=== PATIENT | female | born 1985 | race Two or more races ===

== ENCOUNTER 2016-07-19 20:46 | Inpatient (IN) | payer OTHER ==
[2016-07-19] VITALS (18 sets, daily range): BP systolic 99–136; BP diastolic 56–85
[~2016-07-19] VITALS: Ht 152.4 cm; Wt 74.0 kg
[2016-07-19] MEDS ORDERED: IRON65TA PO (21:05)
[2016-07-19] MEDS ORDERED: ASCO25TA PO (21:05)
[2016-07-19] MEDS ORDERED: PRENTAB9 PO (21:05)
[2016-07-19 21:41] LABS: MEAN CORPUSCULAR HEMOGLOBIN 27.3 pg (27.0-33.0); MEAN CORPUSCULAR HGB CONC 33.1 g/dl (32.0-36.5); MEAN CORPUSCULAR VOLUME 82.3 fl (80.0-96.0); RED CELL DISTRIBUTION WIDTH 15.9 % (11.5-14.5); WHITE BLOOD COUNT 17.3 K/mm3 (4.0-10.0)
[2016-07-19] MEDS ORDERED: FENTANYL 2MCG/ML ROPIVACAINE 0.2% NACL 250 ML CADD As Ordered ONE (21:44)
[2016-07-19] MEDS ORDERED: LR 1,000 ML IV SCH (21:55)
[2016-07-19] MEDS ORDERED: LACTATED RINGER'S 1000 ML IV STA (21:55)
[2016-07-19] MEDS ORDERED: EPIDURAL COMMENT XX SCH (22:10)
[2016-07-19] MEDS ORDERED: REFRIGERATOR IV KEYS XX PRN (22:10)
[2016-07-19] MEDS ORDERED: LACTATED RINGER'S 1000 ML IV PRN (22:10)
[2016-07-19] MEDS ORDERED: ONDANSETRON 4MG/2ML VIAL (J2405) IV PRN (22:10)
[2016-07-19] MEDS ORDERED: EPIDURAL/PCA KEYS XX PRN (22:10)
[2016-07-19] MEDS ORDERED: FENTANYL/ROPIVACAINE/NACL CADD 250 ML EPIDURAL SCH (22:10)
[2016-07-19] MEDS ORDERED: NALOXONE INJ 0.4 MG/1 ML VIAL (J2310) IV PRN (22:10)
[2016-07-19] MEDS ORDERED: diphenhydrAMINE INJ 50MG/ML VIAL (J1200) IV PRN (22:10)
[2016-07-20] VITALS (23 sets, daily range): BP systolic 96–128; BP diastolic 52–68
[2016-07-20] MEDS ORDERED: OXYTOCIN 30 UNITS IN 0.9% NaCl 500ML IV BAG (J2590) As Ordered ONE (00:26)
[2016-07-20] MEDS ORDERED: LR 1,000 ML IV SCH ×2 (02:53→04:45)
[2016-07-20] MEDS ORDERED: OXYTOCIN DRIP 30 UNITS in APPROPRIATE DILUENT 1 EA IV SCH (03:00)
[2016-07-20] MEDS ORDERED: BICITRA 30ML SOLN UDC As Ordered ONE (03:31)
[2016-07-20] MEDS ORDERED: OXYTOCIN INJ 10 UNITS/ML VIAL (J2590) As Ordered ONE ×2 (03:43→05:00)
[2016-07-20] MEDS ORDERED: LIDOCAINE 2% W/EPIN INJ 20ML **PRES FREE As Ordered ONE (03:43)
[2016-07-20] MEDS ORDERED: MORPHINE PRES-FREE INJ 10 MG/10 ML VIAL (J2274) As Ordered ONE (04:24)
[2016-07-20] MEDS ORDERED: MEPERIDINE 50 MG/ML 1ML VIAL (J2175) As Ordered ONE (04:24)
[2016-07-20] MEDS ORDERED: ONDANSETRON 4MG/2ML VIAL (J2405) IV PRN ×3 (04:30→05:15)
[2016-07-20] MEDS ORDERED: NALOXONE INJ 0.4 MG/1 ML VIAL (J2310) IV PRN ×2 (04:30)
[2016-07-20] MEDS ORDERED: METOCLOPRAMIDE INJ 10MG/2ML VIAL (J2765) IV PRN ×3 (04:30→05:15)
[2016-07-20] MEDS ORDERED: NALBUPHINE HCL 10 MG/ML AMP (J2300) IV PRN ×2 (04:30→04:45)
[2016-07-20] MEDS ORDERED: ONDANSETRON 4MG/2ML VIAL (J2405) As Ordered ONE (04:30)
[2016-07-20] MEDS ORDERED: KETOROLAC 60 MG/2 ML VIAL (J1885) As Ordered ONE (04:30)
[2016-07-20 04:37] LABS: CORD GAS ABE V -1.7; CORD GAS HCO3 V 23.2 MEQ/L; CORD GAS PCO2 V 40.2 mmHg; CORD GAS PH V 7.379 UNITS; CORD GAS PO2 V 26.2 mmHg; CORD GAS SBC V 22.1 MEQ/L; CORD GAS TCO2 V 24.4 MEQ/L
[2016-07-20 04:40] LABS: CORD GAS ABE A -2.1; CORD GAS HCO3 A 23.8 MEQ/L; CORD GAS O2 SAT A 45.9 %; CORD GAS PCO2 A 44.8 mmHg; CORD GAS PH A 7.344 UNITS; CORD GAS PO2 A 21.4 mmHg; CORD GAS SBC A 21.3 MEQ/L; CORD GAS TCO2 A 25.2 MEQ/L
[2016-07-20] MEDS ORDERED: fentaNYL 100 MCG/2 ML INJECTION (J3010) IV PRN (04:45)
[2016-07-20] MEDS ORDERED: MEPERIDINE INJ 25 MG/ML VIAL (J2175) IV PRN (04:45)
[2016-07-20] MEDS ORDERED: PERCOCET 5MG/325MG TAB PO PRN (04:45)
[2016-07-20] MEDS ORDERED: HYDROmorphone HCL 1 MG/ML SYRINGE (J1170) IV PRN (04:45)
[2016-07-20] MEDS ORDERED: diphenhydrAMINE INJ 50MG/ML VIAL (J1200) IV PRN (04:45)
[2016-07-20] MEDS: LR 1,000 ML IV SCH ×3 (05:02→15:54)
[2016-07-20] MEDS ORDERED: METHYLERGONOVINE MALEATE 0.2 MG TAB PO PRN (05:15)
[2016-07-20] MEDS ORDERED: MEASLES,MUMPS,RUBELLA VACCINE INJ (MMR-II) (90707) SC SCH (05:15)
[2016-07-20] MEDS ORDERED: ANUSOL HC CREAM 30GM TOP PRN (05:15)
[2016-07-20] MEDS ORDERED: RHOGAM 300 MCG (1500 IU) INJ (J2790) IM SCH (05:15)
[2016-07-20] MEDS ORDERED: PROMETHAZINE 25 MG TAB PO PRN (05:15)
[2016-07-20] MEDS: DOCUSATE SODIUM 100 MG CAP PO SCH ×2 (07:47→21:48)
[2016-07-20] MEDS: PRENATAL VITAMIN TAB PO SCH (07:49)
[2016-07-20] MEDS ORDERED: ACETAMINOPHEN 500 MG TAB PO ONE (08:30)
--- NOTE | 2016-07-20 08:34 | RO ---
DATE OF PROCEDURE: 07/20/2016 PREPROCEDURE DIAGNOSIS: 1) Term 2) Cat II tracing 3) Arrest of descent concern for CPD 4) Meconium POSTPROCEDURE DIAGNOSIS: 1) Term 2) Cat II tracing 3) Arrest of descent concern for CPD 4) Meconium 5) CPD PROCEDURE: Primary Low Transverse Section SURGEON: Dr. Dakota Reynoso. DROP WIRE OPERATOR: Dr. Fine ANESTHESIA: Oni/, Epidural ESTIMATED BLOOD LOSS: 600ml UOP: 150ml IVF: 1800ml Isotonic fluid INDICATION FOR SURGERY: Patient is a 30-year-old G1 at 40 weeks admitted in active labor at 7 complete and 0, progressed to complete complete 0 with previously thought ruptured membranes. However, artificial rupture of membranes (AROM) done performed with thick meconium noted. With pushing over the next approximately 2 hours noted minimal descent as well as category 2 tracing with periods of epidotic late decelerations lengthening in duration as well as nadiring to as low as 60. Re-evaluation of patient demonstrated complete/ complete/+2 again with minimal descent as well as significant narrowing of ischial spines as well as pubic arch at less than 90 degrees. Long discussion with patient and spouse in regards to recommendation of section with likely cephalic pelvic disproportion and arrest of descent. Also noted period of late decelerations. Reviewed risks/benefits/alternatives/indications to primary low transverse section with above indication. Patient and spouse acknowledged and reviewed and obtained consent. Again the risks, benefits, alternatives, indications were reviewed with patient and informed consent was obtained. Patient was taken to the operating room where previous epidural was noted to be adequate. Patient was then prepped and draped in a normal sterile fashion and a Orantes catheter was placed without incident. After a time out was performed, a low Pfannenstiel incision was performed and carried through to the underlying layer of fascia with the assistance of Bovie cautery. The fascia was incised in midline and extended laterally with Fletchre scissors. The superior aspect of the fascial incision was grasped with Telma clamps, elevated, and underlying muscle dissected off bluntly as well as with assistance of Fletcher scissors. This was again repeated on the lower aspect of the fascia which in a similar fashion was grasped times two with Telma, tented up and the rectus muscle dissected up bluntly as well as with Fletcher scissors. The rectus muscle was then in the midline, the peritoneum was entered digitally and extended horizontally and superiorly to get visualization of the bladder. The bladder blade was then introduced into the abdomen. The vesicouterine membrane was noted and picked up with forceps and entered sharply with Metzenbaum scissors. This incision was then extended laterally and a bladder flap created digitally. Next , the lower uterine segment was incised in a transverse fashion with a scalpel without complications. The amniotic sac was artificially ruptured with minimal meconium fluid noted. The uterine incision was then extended in a superior fashion in a routine manner without complication. The bladder blade was removed and the was found to be in cephalic presentation deep within the pelvis. The baby was delivered without complication, however, through the hysterotomy site. The cord was doubly clamped and cut and the infant handed off to the awaiting NICU team. Cord gases were then obtained for both arterial and venous, as well as cord blood obtained. Placenta was removed with gentle traction on the umbilical cord manually without complication. The uterus was exteriorized and cleared of all clots and debris. Bladder blade was then reintroduced into the abdomen. Uterine incision was carefully evaluated and noted to have slightly extended on the lower left aspect. The hysterotomy was repaired with #0 Monocryl starting in the lower slight extension on the left side and carried across in a running locked fashion. A second layer of #0 Monocryl was then used to imbricate the hysterotomy in a horizontal fashion. A third Monocryl was used in two small segments running of approximately 3 cm each. A small area of additional bleeding was noted inferior to the hysterotomy which was treated with a #3-0 Vicryl [id number] as well as Bovie cautery without incident. Bilateral fallopian tubes and ovary were noted to be normal. The posterior cul-de-sac was then irrigated with warm saline and the uterus was reintroduced into the abdomen and carefully re-evaluated and noted to be hemostatic. The fascia was then reapproximated with #0 Vicryl in a running fashion without incident. The subcutaneous layer was closed with #3-0 Vicryl in interrupted fashion times three. The skin was closed with #4-0 Monocryl in subcuticular fashion. The incision was then dressed with a pressure dressing. Prior to the pressure dressing, the incision had half inch Steri-Strips placed in a perpendicular fashion without incident. At the completion of the case, bimanual exam performed, good uterine tone and minimal vaginal bleeding noted. 2 grams of Ancef provided prior to skin incision. Patient tolerated the procedure well. Sponge, lap and needle counts correct times three. Patient was taken to the recovery room in stable condition. As a final note, believed significant cephalopelvic disproportion (CPD) evaluation, the infant demonstrated no noted molding. Strong consideration for section in the suture. Campbell Reynoso OB-V BLOCK SAW OPERATOR MTDD
[2016-07-20] MEDS: KETOROLAC 30 MG/ML VIAL (J1885) IV SCH ×3 (09:56→22:32)
[2016-07-20] MEDS: PERCOCET 5MG/325MG TAB PO PRN (21:49)
[2016-07-21 02:17] VITALS: BP 100/61
[2016-07-21] MEDS: KETOROLAC 30 MG/ML VIAL (J1885) IV SCH (05:04)
[2016-07-21 05:48] VITALS: BP 97/59
[2016-07-21 07:17] LABS: MEAN CORPUSCULAR HEMOGLOBIN 27.3 pg (27.0-33.0); MEAN CORPUSCULAR HGB CONC 32.5 g/dl (32.0-36.5); MEAN CORPUSCULAR VOLUME 84.1 fl (80.0-96.0); RED CELL DISTRIBUTION WIDTH 16.7 % (11.5-14.5); WHITE BLOOD COUNT 13.4 K/mm3 (4.0-10.0)
[2016-07-21] MEDS: DOCUSATE SODIUM 100 MG CAP PO SCH ×2 (08:16→21:14)
[2016-07-21] MEDS: PRENATAL VITAMIN TAB PO SCH (08:16)
[2016-07-21] MEDS: PERCOCET 5MG/325MG TAB PO PRN ×4 (08:18→21:14)
[2016-07-21 10:43] VITALS: BP 115/62
[2016-07-21 14:00] LABS: MEAN CORPUSCULAR HEMOGLOBIN 27.1 pg (27.0-33.0); MEAN CORPUSCULAR HGB CONC 32.6 g/dl (32.0-36.5); MEAN CORPUSCULAR VOLUME 83.1 fl (80.0-96.0); RED CELL DISTRIBUTION WIDTH 16.6 % (11.5-14.5); WHITE BLOOD COUNT 14.2 K/mm3 (4.0-10.0)
[2016-07-21 14:02] VITALS: BP 107/59
[2016-07-21 18:34] VITALS: BP 140/62
[2016-07-21 22:00] VITALS: BP 114/66
[2016-07-22] MEDS: PERCOCET 5MG/325MG TAB PO PRN ×2 (01:02→09:07)
[2016-07-22 02:00] VITALS: BP 127/82
[2016-07-22 06:00] VITALS: BP 124/85
[2016-07-22] MEDS: PRENATAL VITAMIN TAB PO SCH (09:06)
[2016-07-22] MEDS: DOCUSATE SODIUM 100 MG CAP PO SCH (09:06)
[2016-07-22] MEDS ORDERED: OXYC1TAB23 PO ×2 (10:47)
[2016-07-22] MEDS ORDERED: COLA100C PO (10:47)
== END 2016-07-22 12:30 | disposition home or self-care (01) | DRG 766 ==
LOC: M LDO 20:46 → M LDI 21:06 → M OBS 07-20 06:32
PROVIDERS: ADMIT Student in an Organized Health Care Education/Training Program; ATTEND Student in an Organized Health Care Education/Training Program
PROC: 10D00Z1 Extraction of Products of Conception, Low, Open Approach (ICD-10-PCS; principal; 2016-07-20 09:34)
DX: O65.4 Obstructed labor due to fetopelvic disproportion, unspecified (principal); Z37.0 Single live birth; Z3A.40 40 weeks gestation of pregnancy; O48.0 Post-term pregnancy; O77.0 Labor and delivery complicated by meconium in amniotic fluid

== ENCOUNTER 2016-09-21 14:30 | Outpatient (RCR) | payer OTHER ==
[~2016-09-21 14:30] MED LIST: ASCO25TA PO; COLA100C3 PO; IRON65TA PO; OXYC1TAB23 PO; PRENTAB9 PO
== END 2016-09-24 ==
LOC: M PT 14:30
PROVIDERS: ATTEND Orthopaedic Surgery
DX: Z51.89 Encounter for other specified aftercare (principal); S99.911A Unspecified injury of right ankle, initial encounter; X58.XXXA Exposure to other specified factors, initial encounter; Y92.89 Other specified places as the place of occurrence of the external cause; Y93.89 Activity, other specified; Y99.8 Other external cause status

== ENCOUNTER 2016-10-12 14:54 | Outpatient (RCR) | payer OTHER | END 2016-10-25 | LOC: M PT 14:54 | PROVIDERS: ATTEND Orthopaedic Surgery | DX: Z51.89 Encounter for other specified aftercare (principal); S99.911A Unspecified injury of right ankle, initial encounter; X58.XXXA Exposure to other specified factors, initial encounter; Y92.89 Other specified places as the place of occurrence of the external cause; Y93.89 Activity, other specified; Y99.8 Other external cause status ==

== ENCOUNTER → 2017-12-04 | Outpatient (CLI) | payer OTHER ==
[~2017-12-04] MED LIST changes: -ASCO25TA PO; -COLA100C3 PO; -IRON65TA PO; +METHACHOLINE KIT (J7674) INH; -OXYC1TAB23 PO; -PRENTAB9 PO
== END ==
LOC: M CARPUL 10:08
DX: R06.02 Shortness of breath (principal)
CPT/HCPCS: J7674